=== PATIENT | male | born 1950 | race Caucasian/White ===

== ENCOUNTER → 2018-01-06 | Day surgery (SDC) | payer OTHER ==
[~2018-01-06] VITALS: Ht 160 cm; Wt 80.7 kg
--- NOTE | 2018-01-06 12:15 | Operative Report ---
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 The risks, benefits, and alternatives to surgery were discussed at length with the patient. Informed consent was obtained. The patient was brought to the operating room where they were placed under sedation. A retrobulbar block was placed behind the left eye without complication. The eye was prepped and draped under normal sterile fashion a speculum was placed good exposure. A superonasal clear corneal tunnel of approximately 4.25 mm in length was made using a crescent blade. Paracenteses were made using stab incision bleed. Cohesive viscoelastic was used to fill the anterior chamber. A central Descemet's membrane was scored and removed using reverse Sinskey hook. The posterior stroma was scraped and roughened. An inferior peripheral iridotomy was made using reverse Sinskey hook and cyclodialysis spatula. A temporary suture was placed in the main incision using 10-0 nylon suture. Superficial scar tissue was scraped off using a 69 blade. Attention was turned to the processed donor cornea. A donor graft was prepared with 8.0 mm vacuum punch. This was placed under Optisol. Attention was turned back to the patient were the suture was loosened and the viscoelastic was removed using coaxial irrigation and aspiration. Using a 60-40 taco fold insertion technique the graft was folded and inserted into the anterior chamber using forceps. The main wound was sutured and found to be watertight. The anterior chamber was reformed using balanced salt solution which also allowed the graft on full in its proper orientation. The graft was floated using a small air bubble and centered at which point a complete air fill was achieved in the anterior chamber. Residual interface fluid was massaged. The graft was allowed to remain in place for 10 minutes at superphysiologic pressure. After 10 minutes the eye was brought to physiologic pressure and left with an approximately 90% air-filled. Some conjunctival injections of cefuroxime and dexamethasone were placed. Dilating drops were placed. Speculum was removed. Maxitrol ointment was placed on the eye followed by patch and shield. The patient was brought to the recovery area with a remain faceup additional hour before being discharged. Instructions were given to the patient to follow-up the next day for routine postoperative care.
== END ==
LOC: STS 02:31
DX: H18.232 Secondary corneal edema, left eye (principal); H59.012 Keratopathy (bullous aphakic) following cataract surgery, left eye; I10 Essential (primary) hypertension; R56.9 Unspecified convulsions; Z85.841 Personal history of malignant neoplasm of brain; Z86.73 Personal history of transient ischemic attack (TIA), and cerebral infarction without residual deficits
CPT/HCPCS: 87070; 87075; J1100; J2001; J2250; J3490; V2785